=== PATIENT | female | born 1995 | race American Indian/Alaskan Native ===

== ENCOUNTER 2018-12-31 20:47 | Emergency (ER) | payer MEDICAID, OTHER ==
[2018-12-31] MEDS ORDERED: Sodium Chloride 0.9% 1,000 ML IV ONE (21:34)
--- NOTE | 2018-12-31 21:37 | EDM.PDOC ---
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 [id number] Time Seen by Provider: 12/31/18 21:20 Source of Information: Reports: Patient History Limitations: Reports: No Limitations - History of Present Illness INITIAL COMMENTS - FREE TEXT/NARRATIVE: This 23 yo female patient reports to the ED with nausea/vomiting for the past month. The patient reports she had similar symptoms with the past 2 pregnancies. The patient reports her last menstrual cycle with in September. The patient reports she has not had any additional symptoms or concerns. Duration: Week(s):, Constant Location: Reports: Abdomen Quality: Reports: Other Severity: Moderate Improves with: Reports: None Worsens with: Reports: None Associated Symptoms: Reports: Nausea/Vomiting - Related Data Allergies Allergy/AdvReac Type Severity Reaction Status Date / Time No Known Allergies Allergy Verified 12/31/18 21:10 Home Meds: Home Meds . 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 ED EXAM, GI/ABD - Physical Exam Exam: See Below Exam Limited By: No Limitations General Appearance: Alert, WD/WN, Mild Distress Eyes: Bilateral: Normal Appearance, EOMI Ears: Normal External Exam, Normal Canal, Hearing Grossly Normal, Normal TMs Nose: Normal Inspection, Normal Mucosa, No Blood Throat/Mouth: Normal Inspection, Normal Lips, Normal Teeth, Normal Gums, Normal Oropharynx, Normal Voice, No Airway Compromise Head: Atraumatic, Normocephalic Respiratory/Chest: No Respiratory Distress, Lungs Clear, Normal Breath Sounds, No Accessory Muscle Use, Chest Non-Tender Cardiovascular: Normal Peripheral Pulses, Regular Rate, Rhythm, No Edema, No Gallop, No JVD, No Murmur, No Rub GI/Abdominal Exam: Normal Bowel Sounds, Soft, Non-Tender, No Organomegaly, No Distention, No Abnormal Bruit, No Mass, Pelvis Stable (Female) Exam: Deferred Rectal (Female) Exam: Deferred Back Exam: Normal Inspection, Full Range of Motion, NT Extremities: Normal Inspection, Normal Range of Motion, Non-Tender, Normal Capillary Refill, No Pedal Edema Neurological: Alert, Oriented, CN II-XII Intact, Normal Cognition, Normal Gait, Normal Reflexes, No Motor/Sensory Deficits Psychiatric: Normal Affect, Normal Mood Skin Exam: Warm, Dry, Intact, Normal Color, No Rash Lymphatic: No Adenopathy Course - Vital Signs Last Recorded V/S: Last Vital Signs Temp 36.1 C 12/31/18 20:59 Pulse 73 12/31/18 20:59 Resp 18 12/31/18 20:59 BP 127/62 12/31/18 20:59 Pulse Ox 100 12/31/18 20:59 - Orders/Labs/Meds Orders: Active Orders 24 hr Category Date Time Status CULTURE URINE [RM] Stat Lab 12/31/18 20:55 Received Sodium Chloride 0.9% [Normal Saline] 1,000 ml Med 12/31/18 21:34 Ordered IV .BOLUS Medication Orders Sodium Chloride (Normal Saline) 1,000 mls @ 999 mls/hr IV .BOLUS ONE Stop: 12/31/18 22:34 Labs: Laboratory Tests 12/31/18 12/31/18 Range/Units 20:55 20:55 Urine Color Yellow (YELLOW) Urine Appearance Cloudy (CLEAR) Urine pH 6.0 (5.0-9.0) Ur Specific [place] 1.025 (1.005-1.030) Urine Protein Trace H (NEGATIVE) Urine Glucose (UA) Negative (NEGATIVE) Urine Ketones >=160 H (NEGATIVE) Urine Occult Blood Negative (NEGATIVE) Urine Nitrite Positive H (NEGATIVE) Urine Bilirubin Negative (NEGATIVE) Urine Urobilinogen 1.0 (0.2-1.0) mg/dL Ur Leukocyte Esterase Moderate H (NEGATIVE) Urine RBC 0-5 /HPF Urine WBC 50-75 H (0-5/HPF) /HPF Ur Epithelial Cells Moderate H /HPF Amorphous Sediment Few (0/HPF) /HPF Urine Bacteria Many H (0-FEW/HPF) /HPF Urine Mucus Occasional /LPF Urine HCG, Qual Positive Meds: Medications Generic Name Dose Route Start Last Admin Trade Name Freq PRN Reason Stop Dose Admin Sodium Chloride 1,000 mls @ 999 mls/hr 12/31/18 21:34 Normal Saline IV 12/31/18 22:34 .BOLUS ONE Departure - Departure Time of Disposition: 22:30 Disposition: Home, Self-Care 01 Condition: Fair Clinical Impression: Qualifiers: Weeks of gestation: 12 weeks Qualified Code(s): Z3A.12 - 12 weeks gestation of Nausea & vomiting Qualifiers: Vomiting type: unspecified Vomiting Intractability: intractable Qualified Code( s): R11.2 - Nausea with vomiting, unspecified - Discharge Information *PRESCRIPTION DRUG MONITORING PROGRAM REVIEWED*: Not Applicable *COPY OF PRESCRIPTION DRUG MONITORING REPORT IN PATIENT DOE: Not Applicable Instructions: Nausea and Vomiting, Adult, [id number], Eating Plan for Women, Preventing Injuries During , [id number] Forms: ED Department Discharge Care Plan Goals: The patient was advised of the examination and lab results during the visit. Since the patient reports no urinary symptoms, the patient was not started on any antibiotics. The patient was given a liter of IV fluids due to the nausea and vomiting. The patient was encouraged to schedule an appointment with an OB/ Case Supervisor for continued evaluation and further management. If the patient has any additional symptoms or concerns, the patient should either return to the emergency department or visit her primary care facility. - My Orders Last 24 Hours: My Active Orders 12/31/18 20:55 CULTURE URINE [RM] Stat 12/31/18 21:34 Sodium Chloride 0.9% [Normal Saline] 1,000 ml IV .BOLUS - Assessment/Plan Last 24 Hours: My Active Orders 12/31/18 20:55 CULTURE URINE [RM] Stat 12/31/18 21:34 Sodium Chloride 0.9% [Normal Saline] 1,000 ml IV .BOLUS
== END 2018-12-31 22:47 | disposition home or self-care (01) ==
LOC: DL.ED 20:47
DX: O21.9 Vomiting of pregnancy, unspecified (principal); Z3A.12 12 weeks gestation of pregnancy
CPT/HCPCS: 81001; 81025; 87086; 87088; 87186; 96360; 99284-25; J7030

== ENCOUNTER 2020-05-06 22:36 | Emergency (ER) | payer MEDICAID ==
[2020-05-06] MEDS ORDERED: Lidocaine 1% 30 ML SDV INJECT ONE (22:55)
[2020-05-06] MEDS ORDERED: Cephalexin 500 MG Cap PO ONE (23:12)
--- NOTE | 2020-05-06 23:17 | EDM.PDOC ---
ED HPI GENERAL MEDICAL PROBLEM - General Chief Complaint: Skin Complaint Stated Complaint: BOIL, RIGHT BUTT CHEEK, LEFT KNEE BEHIND IT Time Seen by Provider: 05/06/20 22:50 Source of Information: Reports: Patient History Limitations: Reports: No Limitations - History of Present Illness INITIAL COMMENTS - FREE TEXT/NARRATIVE: This 24 yo female patient reports to the ED with pain to her right buttocks and behind her left knee. The patient reports she started to notice symptoms 4 days ago, but the pain has been getting worse. The patient has not been able to get into the clinic for evaluation. 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 Right Buttock Pain Score (Numeric/FACES): 8 Left Upper Posterior Knee Pain Score (Numeric/FACES): 5 - Related Data Allergies Allergy/AdvReac Type Severity Reaction Status Date / Time No Known Allergies Allergy Verified 05/06/20 22:50 Home Meds: Home Meds Pnv No.95/Ferrous Fum/Folic AC [ Vitamin Tablet] 1 tab PO DAILY 06/29/19 [History] Acetaminophen [Tylenol] 650 mg PO Q6H PRN tablet 07/21/19 [Rx] Docusate Sodium [Colace] 100 mg PO BID PRN cap 07/21/19 [Rx] Ibuprofen [Motrin] 800 mg PO Q8H PRN tablet 07/21/19 [Rx] Past Medical History - Past Health History Medical/Surgical History: Denies Medical/Surgical History HEENT History: Reports: None Cardiovascular History: Reports: None Respiratory History: Reports: None Gastrointestinal History: Reports: None Genitourinary History: Reports: Pyelonephritis, UTI, Recurrent 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 delivered male 35 6/7 07/16/18 Musculoskeletal History: Reports: Fracture, Other (See Below) Other Musculoskeletal History: left lower arm- was not seen for this limb restrictions Neurological History: Reports: None Psychiatric History: Reports: None Endocrine/Metabolic History: Reports: None Hematologic History: Reports: Anemia Immunologic History: Reports: None Oncologic (Cancer) History: Reports: None Dermatologic History: Reports: None - Infectious Disease History Infectious Disease History: Reports: None - Past Surgical History Head Surgeries/Procedures: Reports: None Female Surgical History: Reports: None Social & Family History - Family History Family Medical History: Noncontributory - Tobacco Use Smoking Status *Q: Never Smoker Second Hand Smoke Exposure: No - Caffeine Use Caffeine Use: Reports: Coffee, Soda - Recreational Drug Use Recreational Drug Use: No ED ROS GENERAL - Review of Systems Review Of Systems: Comprehensive ROS is negative, except as noted in HPI. ED EXAM, SKIN/RASH Exam: See Below Exam Limited By: No Limitations General Appearance: Alert, WD/WN, Mild Distress Eye Exam: Bilateral Eye: EOMI, Normal Inspection, PERRL Ears: Normal External Exam, Normal Canal, Hearing Grossly Normal, Normal TMs Nose: Normal Inspection, Normal Mucosa, No Blood Throat/Mouth: Normal Inspection, Normal Lips, Normal Teeth, Normal Gums, Normal Oropharynx, Normal Voice, No Airway Compromise Head: Atraumatic, Normocephalic Neck: Normal Inspection, Supple, Non-Tender, Full Range of Motion Respiratory/Chest: No Respiratory Distress, Lungs Clear, Normal Breath Sounds, No Accessory Muscle Use, Chest Non-Tender Cardiovascular: Normal Peripheral Pulses, Regular Rate, Rhythm, No Edema, No Gallop, No JVD, No Murmur, No Rub GI/Abdominal: Normal Bowel Sounds, Soft, Non-Tender, No Organomegaly, No Distention, No Abnormal Bruit, No Mass (Female) Exam: Deferred Rectal (Female) Exam: Deferred Back Exam: Normal Inspection, Full Range of Motion, NT Extremities: Leg Pain (right bottocks, posterior left knee) Neurological: Alert, Oriented, CN II-XII Intact, Normal Cognition, Normal Gait, Normal Reflexes, No Motor/Sensory Deficits Psychiatric: Normal Affect, Normal Mood Skin: Erythema (right bottock), Increased Warmth (right buttocks) Location, Skin: Lower Extremity, Right, Lower Extremity, Left Characteristics: Erythematous Associated features: Warmth, Tenderness, Swelling, Induration, Inflammation Lymphatic: No Adenopathy ED SKIN PROCEDURES - I&D Site: right bottocks Skin Prep: Providone-Iodine (Betadine), Isopropyl Alcohol (Alcohol) Local Anesthesia: Lidocaine: 1% Plain Local Anesthetic Volume: 3cc Area Incised With: 11 Blade Drainage: Purulent, Bloody, Moderate Amount Probed to Break Up Loculations: Yes Packed With: None Sterile Dressinx4(s) Complications: No Course - Vital Signs Last Recorded V/S: Last Vital Signs Temp 36.4 C 05/06/20 22:45 Pulse 82 05/06/20 22:45 Resp 17 05/06/20 22:45 BP 113/62 05/06/20 22:45 Pulse Ox 99 05/06/20 22:45 - Orders/Labs/Meds Orders: Active Orders 24 hr Category Date Time Status CULTURE WOUND [RM] Stat Lab 05/06/20 23:17 Ordered Meds: Medications Discontinued Medications Generic Name Dose Route Start Last Admin Trade Name Venessa PRN Reason Stop Dose Admin Cephalexin 500 mg 05/06/20 23:12 Keflex PO 05/06/20 23:13 ONETIME ONE Lidocaine HCl 30 ml 05/06/20 22:55 05/06/20 22:59 Xylocaine-Mpf 1% INJECT 05/06/20 22:56 30 ml ONETIME ONE Administration Departure - Departure Time of Disposition: 23:14 Disposition: Home, Self-Care 01 Condition: Fair Clinical Impression: Abscess of buttock, right - Discharge Information *PRESCRIPTION DRUG MONITORING PROGRAM REVIEWED*: Not Applicable *COPY OF PRESCRIPTION DRUG MONITORING REPORT IN PATIENT DOE: Not Applicable Instructions: Skin Abscess, Fdry-eo-Tigr, Incision and Drainage, Care After Forms: ED Department Discharge Care Plan Goals: The patient was advised of the examination results during the visit. The abscess was incised and drained during the visit. The patient was given an oral dose of Keflex (500 mg) while in the ED and discharged with a script for Keflex (500 mg) #30 to take 1 by mouth 3 times per day for 10 days. If the patient has any additional symptoms or concerns, the patient should follow-up with her primary care facility or return to the emergency department. Sepsis Event Note (ED) - Evaluation Sepsis Screening Result: No Definite Risk - Focused Exam Vital Signs: Vital Signs Temp Pulse Resp BP Pulse Ox 05/06/20 22:45 36.4 C 82 17 113/62 99 - My Orders Last 24 Hours: My Active Orders 05/06/20 23:17 CULTURE WOUND [RM] Stat - Assessment/Plan Last 24 Hours: My Active Orders 05/06/20 23:17 CULTURE WOUND [RM] Stat
== END 2020-05-06 23:20 | disposition home or self-care (01) ==
LOC: DL.ED 22:36
DX: L02.31 Cutaneous abscess of buttock (principal)
CPT/HCPCS: 10060; 87070; 87077; 87186; 99283; A9270; J2001